=== PATIENT | female | born 1990 | race Caucasian/White ===

== ENCOUNTER 2023-09-28 04:29 | Day surgery (SDC) | payer BC ==
[2023-09-28] MEDS ORDERED: Acetaminophen 500 MG TAB ONE (05:04)
[2023-09-28] MEDS ORDERED: Morphine 4 MG/ML VIAL ONE (05:05)
[2023-09-28] MEDS ORDERED: Ondansetron PF 4 MG/2 ML Vial ONE ×2 (05:05→10:52)
[2023-09-28 05:49] LABS: #Basophils 0.1 thou/uL (0.0-0.2); #Eosinphils 0.5 thou/uL (0.0-0.7); #Monocytes 0.7 thou/uL (0.11-0.59); #Neutrophils 5.9 thou/uL (1.40-6.50); %Basophils 0.6 % (0.0-1.0); %Eosinophils 5.6 % (0.0-10.0); %Lymphocytes 25.1 % (21.0-51.0); %Monocytes 6.8 % (0.0-10.0); %Neutrophils 61.7 % (42.0-75.0); Hematocrit 41.7 % (36.0-47.0); Hemoglobin 13.6 g/dL (12.0-16.0); Mean Corpuscular HGB CONC 32.6 g/dL (32.0-36.0); Mean Corpuscular Hemoglobin 27.3 pg (27.0-31.0); Mean Corpuscular Volume 83.6 fl (78.0-98.0); Platelet Count 383 10x3/uL (130-400); RBC Distribution Width 13.6 % (11.5-14.5); Red Blood Cell (RBC) Count 4.99 mill/uL (4.20-5.40); White Blood Cell (WBC) Count 9.6 10x3/uL (4.8-10.8)
[2023-09-28 06:16] LABS: Pregnancy Test - Urine (BHCG) Negative (Negative); Pregu Control Background? CLEAR/WHITE (CLR/WHITE); Pregu Control Bar Appear? YES (CONTROL BAR)
[2023-09-28 06:21] LABS: Bilirubin Negative (Negative); Blood, Urine Negative (Negative); CAUTI Indications for Culture Pelvic or flank pain; Clarity Clear (Clear); Glucose, Urine (Dipstick) Normal (Negative); Ketone, Urine Negative (Negative); Leukocyte Negative Leu/uL (Negative); Nitrite Negative (Negative); Protein, Urine (Dipstick) Negative (Neg-Trace); RBC/HPF 0-3 HPF (0-3); Specific Gravity, Urine 1.021 (1.002-1.036); Urobilinogen Normal mg/dL (Less than 2); WBC/HPF 0-3 HPF (0-3)
[2023-09-28 06:24] LABS: Bacteria/HPF 1+ HPF (None Seen); Urine Culture Reflex No No
[2023-09-28 06:25] LABS: Specific Gravity 1.021 (1.002-1.036)
[2023-09-28 06:40] LABS: ALT (SGPT) 12 U/L (8-55); AST (SGOT) 12 U/L (5-34); Albumin 4.2 g/dL (3.5-5.0); Alkaline Phosphatase 61 U/L (40-110); Anion Gap 14 mmol/L (10-20); BUN (Urea Nitrogen) 15 mg/dL (7.0-18.7); Bilirubin, Total 0.3 mg/dL (0.2-1.2); Calc. Creatinine Clearance 0 mL/min (70-130); Calcium 9.4 mg/dL (7.8-10.44); Carbon Dioxide 25 mmol/L (22-29); Chloride 104 mmol/L (98-107); Estimated GFR 86; Globulin 3.2 g/dL (2.4-3.5); Glucose 122 mg/dL (70-105); Lipase 12 U/L (8-78); Potassium 3.7 mmol/L (3.5-5.1); Protein, Total 7.4 g/dL (6.0-8.3); Sodium 139 mmol/L (136-145)
[2023-09-28] MEDS ORDERED: Ondansetron PF 4 MG/2 ML Vial IVP PRN (07:44)
[2023-09-28] MEDS ORDERED: Acetaminophen 325 MG TAB PO PRN (07:44)
[2023-09-28] MEDS ORDERED: traMADol HCl 50 MG TAB PO PRN (07:44)
[2023-09-28] MEDS ORDERED: Morphine 2 MG/ML VIAL SLOW IVP PRN (07:44)
[2023-09-28] MEDS ORDERED: hydrALAZINE 20 MG/ML VIAL SLOW IVP PRN (07:44)
[2023-09-28] MEDS ORDERED: Ipratropium/Albuterol 3 ML NEB NEB PRN (07:44)
[2023-09-28] MEDS ORDERED: Sodium Chloride 0.9% 1,000 ML IV SCH (07:45)
[2023-09-28] MEDS ORDERED: Scopolamine 1 mg/72 hour Patch ONE (10:02)
[2023-09-28] MEDS ORDERED: Ketorolac Tromethamine 30 MG (1 mL) VIAL ONE (10:02)
[2023-09-28] MEDS ORDERED: LevoFLOXacin D5W 500 mg (100 mL) BAG ONE (10:03)
[2023-09-28] MEDS ORDERED: Rocuronium Bromide 10 MG/ML (10ML VIAL) ONE (10:52)
[2023-09-28] MEDS ORDERED: PROPOFOL 20 ML ONE ×2 (10:52→11:55)
[2023-09-28] MEDS ORDERED: Dexamethasone 20 MG/5 ML VIAL ONE (10:52)
[2023-09-28] MEDS ORDERED: Lidocaine 1% PF 5 ML VIAL ONE (10:52)
[2023-09-28] MEDS ORDERED: Succinylcholine 200 MG/10 ml SYRINGE FS ONE (10:52)
[2023-09-28] MEDS ORDERED: fentaNYL PF 100 MCG/2 ML SYRINGE ONE (11:00)
[2023-09-28] MEDS ORDERED: EPINEPHrine 1 MG/ML VIAL ONE (11:15)
[2023-09-28] MEDS ORDERED: Bupivacaine PF 0.5% 30 ML VIAL ONE (11:16)
[2023-09-28] MEDS ORDERED: Glycopyrrolate 0.2 MG/ML 5 ML SYRINGE ONE (11:40)
[2023-09-28] MEDS ORDERED: NEOSTIGMINE 3 MG/3 ML SYR 3 MG/3 ML SYRINGE ONE (11:52)
[2023-09-28] MEDS ORDERED: traMADol HCl 50 MG TAB PO SCH (12:00)
[2023-09-28] MEDS ORDERED: SUGAMMADEX SODIUM 200 MG/2 ML VIAL ONE (12:05)
[2023-09-28] MEDS ORDERED: Meperidine HCl/PF 25 MG (1 mL) VIAL ONE (12:17)
[2023-09-28] MEDS ORDERED: fentaNYL 50 mcg/mL 1 mL Vial ONE (12:29)
[2023-09-28] MEDS ORDERED: HYDROcodone/Acetaminophen 5/325 mg Tablet ONE (13:44)
== END 2023-09-28 14:06 | disposition home or self-care (01) ==
LOC: ERS 04:29 → SDC 08:59
PROVIDERS: ATTEND Specialist
PROC: 0FT44ZZ Resection of Gallbladder, Percutaneous Endoscopic Approach (ICD-10-PCS; principal; 2023-09-28)
DX: K80.12 Calculus of gallbladder with acute and chronic cholecystitis without obstruction (principal)
CPT/HCPCS: 76705; 80053; 81001; 81025; 83690; 85025; 88304; 93005; 96374; 96375; C1889; J0171; J1100; J1885; J1956; J2175; J2270; J2405; J2704; J3010; J7050; S0020